=== PATIENT | male | born 1950 | race American Indian/Alaskan Native ===

== ENCOUNTER 2018-07-26 05:51 | Day surgery (SDC) | payer MEDICARE ==
[2018-07-26 06:30] VITALS: BMI 25.7
[2018-07-26] MEDS ORDERED: ceFAZolin IV 2 gm in Dextrose 2 GM/50 ML BAG IVPB ONE (07:18)
[2018-07-26] MEDS ORDERED: HEPARIN-NS 5,000 UNITS/500 ML 5,000 UNIT/500 ML BAG IV ONE (07:18)
[2018-07-26] MEDS ORDERED: Propofol 10 mg/ml Inj (20 ML) ONE (07:19)
[2018-07-26] MEDS ORDERED: Midazolam 2 MG/2 ML VIAL ONE (07:19)
[2018-07-26] MEDS ORDERED: Etomidate 20 mg/10ml Inj IV ONE (08:50)
[2018-07-26] MEDS ORDERED: Oxycodone/Acetaminophen 5/325 mg Tab PO PRN (09:33)
[2018-07-26] MEDS ORDERED: HYDROmorphone 0.5 mg/0.5 ml ISec IVP PRN (09:33)
--- NOTE | 2018-07-26 09:33 | PCM.SURG1 ---
Surgeon's Initial Post Op Note - Surgeon's Notes Surgeon: alyse Marriage And Family Counselor: 0 Type of Anesthesia: General LMA Anesthesia Administered By: fernandez Pre-Operative Diagnosis: renal failure Operative Findings: no cephalic or basilic vein Post-Operative Diagnosis: same Operation Performed: brachial artery brachial vein avf left arm Specimen/Specimens Removed: 0 Estimated Blood Loss: EBL {In ML}: 15 Blood Products Given: N/A Drains Used: No Drains Post-Op Condition: Good Date of Surgery/Procedure: 07/26/18 Time of Surgery/Procedure: 09:32
[2018-07-26 11:00] VITALS: BP 153/61; PULSE 82; RESP 18; TEMP 97.1; O2SAT 96
--- NOTE | 2018-07-26 21:21 | OP ---
PROCEDURE DATE: 07/26/2018 PREOPERATIVE DIAGNOSIS: Renal failure. POSTOPERATIVE DIAGNOSIS: Renal failure. PROCEDURE CARRIED OUT: Brachio-brachial fistula, left elbow. SURGEON: Nico Sinha Jr., MD CLINICAL MENTAL HEALTH COUNSELOR: None. ANESTHESIOLOGIST: , HOUSING RELOCATION INDICATIONS: A 67-year-old male with renal insufficiency, on dialysis for approximately three years, previous access in the right elbow just failed despite numerous attempts to salvage. OPERATIVE FINDINGS: At the end of the procedure, there was a good thrill with the fistula and is palpable pulse at the wrist. Ultrasound examination did not reveal a good cephalic vein in order to reveal an adequate basilic vein going up the arm. The only option for at this time for fistula was a brachio-brachial fistula, which might require mobilization in the future. DESCRIPTION OF PROCEDURE: The patient was given general anesthesia and intravenous antibiotics. Veins were marked on the skin with ultrasound adjacent artery was marked. One incision was made. The vein and the artery were mobilized and anastomozed in a [id number] fashion using loupe magnification and heparin anticoagulation. At the end of the procedure, there is a good flow in both directions. The procedure was then terminated. The wound was closed with Monocryl, Vicryl and nylon sutures. The procedure was terminated. BLOOD LOSS FOR THE PROCEDURE: 15 mL. OPERATION CARRIED OUT: Brachio-brachial fistula, left elbow. Nico Sinha Jr., MD
== END 2018-07-26 11:41 | disposition home or self-care (01) ==
LOC: C.SDS 05:51
PROVIDERS: ATTEND Surgery Vascular Surgery
DX: N19 Unspecified kidney failure (principal); Z99.2 Dependence on renal dialysis
CPT/HCPCS: 36415; 36821; 84132; J0690; J1170; J1644; J2001; J2250; J2405; J2704; J3010; J7030; J7040

== ENCOUNTER 2018-11-24 09:32 | Outpatient (CLI) | payer MEDICARE, BC | END 2018-11-24 09:33 | disposition home or self-care (01) | LOC: C.PAT 09:32 | DX: N18.6 End stage renal disease (principal); Z01.818 Encounter for other preprocedural examination ==

== ENCOUNTER 2018-11-29 07:18 | Observation (INO) | payer MEDICARE, BC ==
[2018-11-29] MEDS ORDERED: ceFAZolin 1 gm in NS 0 GM/0 ML BAG IVPB ONE (08:01)
[2018-11-29] MEDS ORDERED: HEPARIN-NS 5,000 UNITS/500 ML 10,000 UNIT/1,000 ML BAG IV ONE (08:01)
[2018-11-29] MEDS ORDERED: Iohexol 240 200 ML ONE ×3 (08:01→15:27)
[2018-11-29] MEDS ORDERED: Midazolam 2 MG/2 ML VIAL ONE (08:34)
[2018-11-29] MEDS ORDERED: Propofol 10 mg/ml Inj (20 ML) ONE ×3 (08:34→15:37)
[2018-11-29] MEDS ORDERED: ceFAZolin 1 gm in NS 2 GM/200 ML BAG IVPB ONE (09:26)
[2018-11-29 09:27] LABS: INR 1.2; PROTHROMBIN TIME 12.8 SECONDS (9.7-12.2)
[2018-11-29 09:29] LABS: CALCIUM 8.6 mg/dl (8.6-10.4)
--- NOTE | 2018-11-29 10:20 | PCM.SURG1 ---
Surgeon's Initial Post Op Note - Surgeon's Notes Surgeon: alyse Manufacturing Inspector: o Type of Anesthesia: General LMA Anesthesia Administered By: vivek Pre-Operative Diagnosis: renal failure/immature avf left arm Operative Findings: see op note Post-Operative Diagnosis: same Operation Performed: revision avf left /placement hybrid shunt Specimen/Specimens Removed: o Estimated Blood Loss: EBL {In ML}: 50 Blood Products Given: N/A Drains Used: No Drains Post-Op Condition: Good Date of Surgery/Procedure: 11/29/18 Time of Surgery/Procedure: 10:20
[2018-11-29] MEDS ORDERED: Oxycodone/Acetaminophen 5/325 mg Tab PO PRN (10:21)
[2018-11-29] MEDS: HYDROmorphone 0.5 mg/0.5 ml ISec IVP PRN ×8 (11:03→14:19)
[2018-11-29] MEDS ORDERED: HEPARIN-NS 5,000 UNITS/500 ML 5,000 UNIT/500 ML BAG IV ONE ×2 (11:15→15:27)
[2018-11-29] MEDS ORDERED: Papaverine Hydrochloride 30 mg/ml (2ml) ONE ×2 (12:19→16:16)
--- NOTE | 2018-11-29 12:53 | PCM.SURG1 ---
Surgeon's Initial Post Op Note - Surgeon's Notes Surgeon: alyse Radiographer Cardiac Catheterization: 0 Type of Anesthesia: General LMA Anesthesia Administered By: vivek Pre-Operative Diagnosis: hand ischemia Operative Findings: shunt ligated. angio showed proximal stenosis in brachail artery( above previous fistula. no clot seen Post-Operative Diagnosis: same Operation Performed: ligation left arm shunt. angiogram Specimen/Specimens Removed: 0 Estimated Blood Loss: EBL {In ML}: 50 Blood Products Given: N/A Drains Used: No Drains Post-Op Condition: Good Date of Surgery/Procedure: 11/29/18 Time of Surgery/Procedure: 12:53
--- NOTE | 2018-11-29 13:52 | RAD ---
Date of service: 11/29/2018 PROCEDURE: Intraoperative Fluoroscopy. HISTORY: ESRD FINDINGS: Fluoroscopic assistance was provided for venous access manipulation. Please refer to the operative report from MICHELE Shelton. Total fluoroscopic time (continuous mode) utilized during the procedure 126.7 seconds. . Total exam DLP: 13.29 (mGy).
--- NOTE | 2018-11-29 13:53 | RAD ---
Date of service: 11/29/2018 PROCEDURE: Intraoperative Fluoroscopy. HISTORY: ISCHEMIC LT. HAND FINDINGS: Fluoroscopic assistance was provided for left upper extremity angiogram. Please refer to the operative report from MICHELE Shelton. Total fluoroscopic time (continuous mode) utilized during the procedure 21.0 seconds. Total exam DLP: 1.26 (mGy).
[2018-11-29] MEDS ORDERED: ceFAZolin 1 gm in NS 1 GM/100 ML BAG IVPB ONE ×2 (15:27→15:51)
[2018-11-29] MEDS ORDERED: Succinylcholine Chloride 20 mg/ml Syr (5 ml) IV ONE (16:49)
[2018-11-29] MEDS ORDERED: HYDROmorphone 0.5 mg/0.5 ml ISec IVP PRN (18:09)
--- NOTE | 2018-11-29 18:17 | PCM.SURG1 ---
Surgeon's Initial Post Op Note - Surgeon's Notes Surgeon: alyse Guest Relations Agent: Type of Anesthesia: General LMA Anesthesia Administered By: wolf Pre-Operative Diagnosis: ischemic hand Operative Findings: proximal ligation of brachial artery found. subsequent dilitation to 3.5 mm Post-Operative Diagnosis: same Operation Performed: left brachial angiogram. repair of brachial artery. balloon angioplasty of brachial artery with 3.5x27 balloon Specimen/Specimens Removed: shunt discarded Estimated Blood Loss: EBL {In ML}: 150 Blood Products Given: N/A Drains Used: No Drains Post-Op Condition: Good Date of Surgery/Procedure: 11/29/18 Time of Surgery/Procedure: 18:18
--- NOTE | 2018-11-29 18:19 | PCM.SURG1 ---
Surgeon's Initial Post Op Note - Surgeon's Notes Surgeon: Bharath Tongue And Quarter Stitcher: PGY4 Type of Anesthesia: General Endo Pre-Operative Diagnosis: L arm ischemia Operative Findings: Low flow to L arm Post-Operative Diagnosis: L arm ischemia Operation Performed: 1. L arm exploration. 2. Angiogram. 3. Repair of brachial artery. 4. Balloon angioplasty Specimen/Specimens Removed: partial L arm hybrid graft Estimated Blood Loss: EBL {In ML}: 200 Blood Products Given: N/A Drains Used: No Drains Post-Op Condition: Good Date of Surgery/Procedure: 11/29/18 Time of Surgery/Procedure: 15:00
[2018-11-29] MEDS ORDERED: Labetalol 5 mg/ml Inj 20ML IV PRN (19:03)
[2018-11-29] MEDS: Labetalol 5mg/ml (4ml) IV PRN ×3 (19:19→19:50)
[2018-11-29] MEDS ORDERED: Labetalol 5mg/ml (4ml) IV STA (21:03)
--- NOTE | 2018-11-29 22:03 | OP ---
PROCEDURE DATE: 11/29/2018 PREOPERATIVE DIAGNOSIS: Renal failure. POSTOPERATIVE DIAGNOSIS: Renal failure. PROCEDURE CARRIED OUT: Revision of arteriovenous fistula, left arm, with placement of hybrid shunt. SURGEON: Nico Sinha Jr., MD STAY CUTTER: None. ANESTHESIOLOGIST: Seth Meraz DO TYPE OF ANESTHESIA: General anesthesia. INDICATIONS: The patient is a 68-year-old male with renal failure, previous access had been in the right arm now had a fistula created in the left arm. However, this is to the brachial vein and the basilic vein has developed and the vein was too intimately tied and deep in his arm Because of this, I placed the hybrid shunt. DESCRIPTION OF PROCEDURE: The patient was given general anesthesia and intravenous antibiotics. Venodyne boots were applied. Using ultrasound, we monitored the left arm and traced down the existent course of the vessel. On ultrasound exam, the anastomosis appeared widely patent. We then carried out a dissection of the proximal portion of the arterialized brachial vein and hold control of this. We then using ultrasound guidance and a small incision of the skin punctured the brachial vein in the axilla. We then deployed a stent, brought it though subcutaneous tunnel and anastomosed using loupe magnification and heparin anticoagulation to the arterial portion. This went quite well. Blood loss for the procedure was about 50 mL. Initially, the pictures showed that the stent was partially not open. This was dilated to 8 mm with an 8-mm balloon and a subsequent film showed brisk flow into the central venous circulation. Although the vein was little bit smaller adjacent to after the stent. We then checked this. There was excellent flow. There was good flow to the hand. We ligated the vein immediately after the arterial anastomosis and this seemed to proceed quite well. This skin wounds were closed. The procedure was terminated. The operation carried out was revision of AV fistula of left arm with placement of hybrid shunt and then included a balloon angioplasty of the venous anastomosis and deployment of a stent here which was part of the hybrid graft. Nico Sinha Jr., MD [facility]
--- NOTE | 2018-11-29 22:28 | CP.PCM.CON ---
History of Present Illness - History of Present Illness History of Present Illness: 68 yo M w/ pmh of htn, dm, and ESRD on HD [place] [facility] [place] presented for revision of L arm AVF, nephrology being consulted for ESRD care; Patient has been on HD since ~3 years; gets dialyzed via L IJ tunneled catheter; had L brachio-brachial AVF creation ~4 months ago but did not mature as expected; patient subsequently taken to OR today for revision but had to have AVF ligated and had repair of brachial artery; Patient currently reports feeling well; denies any pain; denies any shortness of breath or recent leg swelling; still makes good amount of urine; reports stable interdialytic weight gains with 2-3 L removed on average HD treatments; reports dry weight 85 kg; has been eating well, no vomiting or diarrhea; Reports usual SBP in 120's-130's; Review of Systems - Constitutional Constitutional: absent: Chills, Fever - EENT Eyes: absent: Blurred Vision Nose/Mouth/Throat: absent: Nasal Congestion, Nasal Discharge, Sinus Pain, Sore Throat - Cardiovascular Cardiovascular: absent: Chest Pain, Palpitations - Respiratory Respiratory: absent: Cough, Dyspnea - Gastrointestinal Gastrointestinal: absent: Nausea - Genitourinary Genitourinary: absent: Dysuria - Musculoskeletal Musculoskeletal: absent: Arthralgias, Back Pain Past Patient History - Past Medical History & Family History Past Medical History?: Yes Pertinent Family History: denies - Past Social History Smoking Status: Former Smoker - CARDIAC Hx Peripheral Edema: Yes - PULMONARY Hx Respiratory Disorders: Yes Hx Bronchitis: Yes (oct 2018) Hx Pneumonia: Yes (X2 LONG AGO) - NEUROLOGICAL Hx Neurological Disorder: Yes (PERIPHERAL NEUROPATHY) - HEENT Hx HEENT Problems: No - RENAL Hx Chronic Kidney Disease: Yes Type of Dialysis Access: perma cath left chest Date of Last Dialysis Treatment: 11/28/18 Hx Renal Failure: Yes - HEMATOLOGICAL/ONCOLOGICAL Hx Blood Transfusions: Yes Hx Blood Transfusion Reaction: No - GASTROINTESTINAL Hx Gastrointestinal Disorders: No - SURGICAL HISTORY Hx Arteriovenous Shunt: Yes (RIGHT NON FUNCTIONING) Hx Coronary Stent: Yes (X2) Hx Vascular Access Device: Yes (RT.NECK) Other/Comment: 2 cardiac Stents - ANESTHESIA Hx Anesthesia: Yes Hx Anesthesia Reactions: No Hx Malignant Hyperthermia: No Has any member of the family had a problem w/ anesthesia?: No Meds Allergies/Adverse Reactions: Allergies Allergy/AdvReac Type Severity Reaction Status Date / Time No Known Allergies Allergy Verified 11/24/18 10:16 - Medications Medications: Current Medications Amlodipine Besylate (Norvasc) 10 mg PO DAILY NEIL Ergocalciferol (Drisdol 50,000 Intl Units Cap) 1 cap PO QWK NEIL Hydromorphone HCl (Dilaudid) 2 mg SC Q4H PRN PRN Reason: Pain, moderate (4-7) Losartan Potassium (Cozaar) 100 mg PO DAILY NEIL Oxycodone/Acetaminophen (Percocet 5/325 Mg Tab) 1 tab PO Q4H PRN PRN Reason: Pain, moderate (4-7) Stop: 12/02/18 10:22 Primidone (Mysoline) 100 mg PO HS NEIL Sevelamer Carbonate (Renvela) 3 mg PO TIDCC NEIL Physical Exam - Constitutional Appears: Non-toxic, No Acute Distress - Eye Exam Eye Exam: Normal appearance. absent: Scleral icterus - Neck Exam Neck exam: Positive for: Normal Inspection. Negative for: Lymphadenopathy - Respiratory Exam Respiratory Exam: Clear to Auscultation Bilateral. absent: Respiratory Distress - Cardiovascular Exam Cardiovascular Exam: RRR, +S1, +S2. absent: Gallop, Rubs - GI/Abdominal Exam GI & Abdominal Exam: Soft. absent: Distended, Tenderness - Exam Exam: absent: Bladder Distension - Extremities Exam Additional comments: no leg edema; warm distal ext - Neurological Exam Neurological exam: Alert, Oriented x3 - Psychiatric Exam Psychiatric exam: Normal Affect, Normal Mood - Skin Skin Exam: Normal Color, Warm Results - Vital Signs Recent Vital Signs: Last Vital Signs Temp 97 F L 11/29/18 18:10 Pulse 82 11/29/18 21:10 Resp 14 11/29/18 21:10 BP 194/77 H 11/29/18 21:10 Pulse Ox 95 11/29/18 21:10 - Labs Result Diagrams: 11/29/18 09:05 Labs: Laboratory Results - last 24 hr 11/29/18 11/29/18 09:05 09:05 PT 12.8 H INR 1.2 APTT 37 H Sodium 137 Potassium 4.2 Chloride 95 L Carbon Dioxide 33 H Anion Gap 13 BUN 26 H Creatinine 6.9 H Est GFR ( Amer) 10 Est GFR (Non-Af Amer) 8 Random Glucose 84 Calcium 8.6 Assessment & Plan (1) ESRD on hemodialysis Assessment and Plan: Stable volume and electrolyte status; will dialyze tomorrow per routine over 3.5 hrs with 2L net UF goal; Status: Acute (2) Hypertensive CKD, ESRD on dialysis Assessment and Plan: BP markedly elevated this evening; didn't get am doses of meds; giving losartan 100 mg this evening as well as IV labetalol 20 mg; will continue with home meds from tomorrow; Status: Acute (3) Anemia in CKD (chronic kidney disease) Assessment and Plan: On long acting EPO formulation as outpatient; checking cbc in am; Status: Chronic (4) Chronic kidney disease-mineral and bone disorder Assessment and Plan: On sevelamer 2 tabs with meals, continue same; Status: Chronic
[2018-11-29 22:48] VITALS: RESP 20
--- NOTE | 2018-11-30 03:40 | OP ---
PROCEDURE DATE: 11/29/2018 PREOPERATIVE DIAGNOSIS: Ischemic left hand. POSTOPERATIVE DIAGNOSIS: Ischemic left hand. PROCEDURE CARRIED OUT: Left brachial angiogram, repair of left brachial artery, ligation of fistula, balloon angioplasty of left brachial artery. SURGEON: Nico Sinha Jr., MD SURGICAL NURSE PRACTITIONER: Keaton Washington DO ANESTHESIOLOGIST: Steve Curiel MD DESCRIPTION OF PROCEDURE: The patient is a 68-year-old man who underwent two previous procedures today. The first is hybrid shunt. Secondly, he underwent exploration of the shunt with ligation. He then returned to the operating room with intraoperative arteriogram and ligation of the actual shunt itself. Then, the hand improved but it did not improve enough. I expect the hand to be completely normal. He could dorsiflex the fingers. He can open his fingers. He had Doppler signals in the wrist but no where near the condition as they should be. Because of this, I returned the patient to the room third time today. OPERATIVE FINDINGS: The main problem was a tie placed on the proximal brachial artery proximal to the anastomosis with a shunt. The tie was then removed. Additional angiograms were carried out. They basically showed that there had been a tie placed here. The vessel that had been taken off was actually brachial artery and the tie was placed proximally to the anastomosis. Subsequently, the completion angiograms showed that there was some residual narrowing here. For this reason, a 3.5 x 27 balloon was placed with a successful balloon dilatation. At the end of procedure on leaving the operating room, there were excellent pulse oximetry tracings to the finger, a palpable pulse in the wrist, and numerous tributaries from the original AV fistula were then ligated. DESCRIPTION OF PROCEDURE: Initially, we carefully assessed the arm with the use of ultrasound and Dopplers and had diminished flow at the wrist. The patient was given general anesthesia. Skin preparation was carried out. An incision was made over the palpable radial artery and mid arm. The artery was dissected free. After this had been done, we then using micropuncture technique carried out an angiogram which showed an abrupt occlusion just proximal to the anastomosis with the graft filling in the retrograde fashion. We removed the previously placed graft. After evaluating this and attempting to cross distal wire, it appeared that the actual problem was ligation placed and what happened thought to be the brachial artery. This led to the ischemia of the hand. Once this was removed, there was an improvement which had numerous films and injected with papaverine until the hand was improved. We dilated this manually with a 3.5-mm dilator through the residual cuff of the Purdin-Jack graft. Then eventually from the above side, we then placed a 3.5-mm balloon with good resolution and good passage of dye. As I said at the end of the whole procedure, we did have a palpable pulse at the wrist. After we carried out the angiogram, we removed the tie. We repaired the artery. We left a rim of the Purdin-Jack graft on the arterial side. We left the stent part in the venous side. The rest of the shunt was removed. We then carefully assessed this with another angiogram and then using a 3.5-mm balloon, dilated this until we satisfied with it, and then we terminated the procedure. Blood loss was 150 mL. Operation carried out was angiogram, revision of AV fistula through proximal brachial artery, balloon angioplasty of brachial artery, and multiple intraoperative arteriograms. The basic finding was that the tie had been placed at the original operation on the brachial artery. Once this was remedied and repaired, the hand improved. Heparin was given during the procedure and is now reversed at the end. Nico Sinha Jr., MD MTDD
[2018-11-30 07:18] VITALS: O2SAT 98
--- NOTE | 2018-11-30 07:42 | CP.PCM.PN ---
Subjective - Date & Time of Evaluation Date of Evaluation: 11/30/18 Time of Evaluation: 06:45 - Subjective Subjective: Vascular surgery Pt seen and examined. No acute events overnight. Only complains of numbness over dorsum of L hand. Objective - Vital Signs/Intake and Output Vital Signs (last 24 hours): Temp Pulse Resp BP Pulse Ox 98.4 F 76 20 173/71 H 98 11/30/18 05:17 11/30/18 05:17 11/30/18 05:17 11/30/18 05:17 11/30/18 05:17 Intake and Output: 11/30/18 11/30/18 06:59 18:59 Intake Total 120 Balance 120 - Medications Medications: Current Medications Amlodipine Besylate (Norvasc) 10 mg PO DAILY NEIL Ergocalciferol (Drisdol 50,000 Intl Units Cap) 1 cap PO QWK NEIL Hydromorphone HCl (Dilaudid) 2 mg SC Q4H PRN PRN Reason: Pain, moderate (4-7) Losartan Potassium (Cozaar) 100 mg PO DAILY NEIL Oxycodone/Acetaminophen (Percocet 5/325 Mg Tab) 1 tab PO Q4H PRN PRN Reason: Pain, moderate (4-7) Stop: 12/02/18 10:22 Primidone (Mysoline) 100 mg PO HS NEIL Sevelamer Carbonate (Renvela) 3 mg PO TIDCC NEIL - Labs Labs: 11/29/18 09:05 PT 12.8 SECONDS (9.7-12.2) H 11/29/18 09:05 INR 1.2 11/29/18 09:05 APTT 37 SECONDS (21-34) H 11/29/18 09:05 - Constitutional Appears: Non-toxic, No Acute Distress - Head Exam Head Exam: ATRAUMATIC, NORMOCEPHALIC - Eye Exam Eye Exam: EOMI. absent: Scleral icterus - Respiratory Exam Respiratory Exam: NORMAL BREATHING PATTERN. absent: Respiratory Distress - GI/Abdominal Exam GI & Abdominal Exam: Soft. absent: Distended, Tenderness - Extremities Exam Additional comments: RUE thrill palpable in AVF LUE Edema of hand and forearm. Dressing C/D/I. ROM WNL. No sign of compartment syndrome. - Neurological Exam Neurological Exam: Alert, Awake, Oriented x3 - Skin Skin Exam: Dry, Warm Assessment and Plan - Assessment and Plan (Free Text) Assessment: 68M S/P L arm exploration for ischemia after hybrid AV shunt. POD#1 Plan: HD today. Monitor L Arm Will D/W Dr. Bharath Washington PGY4
--- NOTE | 2018-11-30 07:52 | CP.PCM.PN ---
Subjective - Date & Time of Evaluation Date of Evaluation: 11/30/18 Time of Evaluation: 07:49 - Subjective Subjective: pulse present some numbness on dorsum of hand no motor deficit, mild swelling events on11/29 reviewed at length with patient course of procedures, findings repair of brachial artery and lack of new access reviewed patient is aware of events/causes/ and Rx. fu office Objective - Vital Signs/Intake and Output Vital Signs (last 24 hours): Temp Pulse Resp BP Pulse Ox 98.4 F 76 20 173/71 H 98 11/30/18 05:17 11/30/18 05:17 11/30/18 05:17 11/30/18 05:17 11/30/18 05:17 Intake and Output: 11/30/18 11/30/18 06:59 18:59 Intake Total 120 Balance 120 - Medications Medications: Current Medications Amlodipine Besylate (Norvasc) 10 mg PO DAILY NEIL Ergocalciferol (Drisdol 50,000 Intl Units Cap) 1 cap PO QWK NEIL Hydromorphone HCl (Dilaudid) 2 mg SC Q4H PRN PRN Reason: Pain, moderate (4-7) Losartan Potassium (Cozaar) 100 mg PO DAILY NEIL Oxycodone/Acetaminophen (Percocet 5/325 Mg Tab) 1 tab PO Q4H PRN PRN Reason: Pain, moderate (4-7) Stop: 12/02/18 10:22 Primidone (Mysoline) 100 mg PO HS NEIL Sevelamer Carbonate (Renvela) 3 mg PO TIDCC NEIL - Labs Labs: 11/29/18 09:05 PT 12.8 SECONDS (9.7-12.2) H 11/29/18 09:05 INR 1.2 11/29/18 09:05 APTT 37 SECONDS (21-34) H 11/29/18 09:05
[2018-11-30 08:54] VITALS: BP 171/76; PULSE 74; TEMP 97.4
--- NOTE | 2018-11-30 09:53 | RAD ---
PROCEDURE: COMPARISON: None TECHNIQUE: Total continuous fluoroscopic time utilized during the procedure: 368.9 seconds ; 35.90 mGy cm 2 FINDINGS: Submitted images from the current procedure: 3 images Please refer to the physician's notes performing the procedure. IMPRESSION: Less than 1 hour fluoroscopic time utilized during performance of the procedure HISTORY: ISCHEMIC LEFT HAND
[2018-12-06] MEDS ORDERED: Ergocalciferol 50,000 Intl Units Cap PO SCH (10:00)
== END 2018-11-30 11:58 | disposition home or self-care (01) ==
LOC: C.SDS 07:18 → C.9E 12:53 → C.3T 22:28
PROVIDERS: ADMIT Surgery Vascular Surgery; ATTEND Surgery Vascular Surgery
DX: I12.0 Hypertensive chronic kidney disease with stage 5 chronic kidney disease or end stage renal disease (principal); N18.6 End stage renal disease; E11.22 Type 2 diabetes mellitus with diabetic chronic kidney disease; Z99.2 Dependence on renal dialysis; T82.898A Other specified complication of vascular prosthetic devices, implants and grafts, initial encounter; D63.1 Anemia in chronic kidney disease; I73.9 Peripheral vascular disease, unspecified; I25.10 Atherosclerotic heart disease of native coronary artery without angina pectoris; Z87.891 Personal history of nicotine dependence
CPT/HCPCS: 36415; 36832; 76000; 80048; 85610; 85730; C1725; C1757; C1760; C1768; C1769; C1894; G0378; J0131; J0690; J1170; J1644; J2250; J2405; J2704; J2765; J3010; J7040; Q9966